=== PATIENT | female | born 1975 | race Caucasian/White ===

== ENCOUNTER → 2024-10-20 | Outpatient (CLI) | payer OTHER ==
[~2024-10-20] MED LIST: BP MED; CIPR500; HYDACE5 PO; HYOS.125; IBUP800 PO; NIZA300; ONDA4ODT MM; OXYACE5T PO; TAMS.4ER PO; [UNRECOGNIZED DRUG - OTHER]
== END ==
LOC: LAB 15:31 → LAB SHORT 15:31
DX: R82.90 Unspecified abnormal findings in urine (principal)
CPT/HCPCS: 87086